=== PATIENT | female | born 1945 | race Caucasian/White ===

== ENCOUNTER 2023-10-25 14:45 | Emergency (ER) | payer MEDICARE, SELFPAY ==
[2023-10-25 14:57] VITALS: BP 130/61
[2023-10-25 15:28] LABS: % Basophils 0.7 % (0-2); % Eosinophils 1.6 % (0-6); % Immature Granulocytes 0.3 % (0-0.5); % Lymphocytes 22.1 % (20.5-51.1); % Monocytes 7.4 % (1.7-9.3); % Neutrophils 67.9 % (42.2-75.2); Absolute Basophils 0.1 10^3/uL (0-0.2); Absolute Eosinophils 0.1 10^3/uL (0-0.7); Absolute Lymphocytes 1.5 10^3/uL (1.2-3.4); Absolute Monocytes 0.5 10^3/uL (0.1-0.6); Absolute Neutrophils 4.7 10^3/uL (1.4-6.5); Hemoglobin 12.4 g/dL (12.0-16.0); Mean Corp Hgb Conc. 33.5 g/dL (33.0-37.0); Mean Corpuscular Hgb 28.7 pg (27.0-31.0); Mean Corpuscular Volume 85.6 fL (81.0-99.0); Mean Platelet Volume 10.1 fL (7.4-10.4); Nucleated Red Blood Cells % 0 %; Platelet Count 211 10^3/uL (130-400); Red Blood Cell Count 4.32 10^6/uL (4.20-5.40); Red Cell Dist. Width 14.6 % (11.5-14.5); White Blood Cell Count 6.9 10^3/uL (4.8-10.8)
[2023-10-25 15:44] LABS: Urine Albumin Negative (Neg - Trace); Urine Bilirubin Negative (Negative); Urine Character Clear (Clear); Urine Color Yellow; Urine Glucose Negative (Negative); Urine Ketone Negative (Negative); Urine Leukocyte 1+ (Negative); Urine Nitrite Negative (Negative); Urine Occult Blood Negative (Negative); Urine Specific Gravity 1.025 (<1.030); Urine Urobilinogen Negative (Neg - 1+)
[2023-10-25 15:48] LABS: ALT (SGPT) 16 U/L (0-35); AST (SGOT) 28 U/L (14-36); Albumin 4.5 g/dl (3.5-5.0); Alkaline Phosphatase 87 U/L (38-126); Blood Urea Nitrogen 27 mg/dl (7-17); Calcium 10.1 mg/dl (8.4-10.2); Carbon Dioxide 22 mmol/L (22-30); Chloride 108 mmol/L (98-107); Glucose 70 mg/dl (70-99); Potassium 4.5 mmol/L (3.5-5.1); Sodium 140 mmol/L (135-145); Total Bilirubin 0.6 mg/dl (0.2-1.3); Total Protein 7.3 g/dl (6.3-8.2); eGFR 51.43
[2023-10-25 15:59] LABS: Urine Red Blood Cell 0-2 /HPF (0-2)
[2023-10-25 16:00] VITALS: BP 152/76
[2023-10-25 16:00] LABS: Urine Squamous Cell 0-2 /LPF (Few)
[2023-10-25 16:07] LABS: Lipase 108 U/L (23-300)
[2023-10-25 17:02] VITALS: BP 152/76
[2023-10-25 17:07] VITALS: BMI 22.6
--- NOTE | 2023-10-25 17:12 | ED.GENMED ---
History of Present Illness
General
Chief Complaint: Abdominal Pain
Source: patient
Exam Limitations: none
Time Seen by Provider: 10/25/23 17:02
Nursing documentation reviewed up to this point in time: agreed with
History of Present Illness
History of Present Illness:
78-year-old female with history of HTN, HLD presents stating she has had intermittent sharp right lower quadrant pains for the past 4 days. She states when the pain comes she also has pain in the mid to right lower back area. She has had 'a
little' nausea but no vomiting. She denies diarrhea or constipation. Her appetite has been good. She denies fever or chills.
Past History
Past History
ED Past Medical History: HTN
ED Past Surgical History: None
Social History
Tobacco: Non-smoker
Alcohol: Occasional
Personal:
Living: with family
Review of Systems
Review of Systems
Allergies reviewed?: Yes
All Other Systems: ROS reviewed and negative except as documented in HPI and ROS
Constitutional: Denies fever or chills
Respiratory: Denies trouble breathing
Cardiac: Denies chest pain
ABD/GI: Reports abdominal pain and nausea; Denies vomiting, diarrhea, constipated or anorexia
: Denies dysuria, frequency or difficulty voiding
Musculoskeletal: Reports no symptoms
Skin: Reports no symptoms
Neurological: Reports no symptoms
Phy Exam
Physical Exam
Physical Exam:
GENERAL: No acute distress. A&Ox3.
CONSTITUTIONAL: Afebrile.
EYES: Clear, conjunctivae normal
ENMT: moist mucus membranes, Pharynx nl
RESPIRATORY: Regular respirations, nonlabored, lungs clear.
CARDIOVASCULAR: Regular rate and rhythm, no murmurs, no rubs.
GI: Soft, tender right lower quadrant, hyperactive BS
MUSCULOSKELETAL: Moves with ease. Well perfused.
SKIN: Warm, dry, pink
PSYCH: Normal mood and affect. Well kept, interactive and appropriate
NEUROLOGIC: Awake, alert and oriented. No focal neurological deficits
Course
Orders/Labs/Results
Orders:
Orders
10/25/23 15:16
Complete Blood Count/With Diff Urgent
Comprehensive Metabolic Panel Urgent
Lipase Urgent
Urinalysis Reflex To Culture Urgent
Date Specimen was Collected: 10/25/23
Time Specimen was Collected: 14:59
Urine Microscopic Reflex Cult Urgent
Urine Culture Urgent
ANGELICA Source: U
Specimen Description:
Date Specimen was Collected: 10/25/23
Time Specimen was Collected: 14:59
10/25/23 17:11
CT Abd/pel W Iv And Oral Contr Urgent
Comment:
Reason For Exam: RLQ pain
0.9% Sodium Chloride 1000 ml [Nss] 1,000 ml IV BOLUS
Iohexol [Omnipaque] See Protocol PO NOW STA
Ketorolac [Toradol] 15 mg IV NOW STA
Abnormal Lab Results
10/25/23
15:16
RDW 14.6 H %
(11.5-14.5)
Chloride 108 H mmol/L
(98-107)
BUN 27 H mg/dl
(7-17)
Creatinine 1.1 H mg/dL
(0.6-1.0)
Leukocyte Esterase Rfl 1+ A
(Negative)
10/25/23 15:16
10/25/23 15:16
Vital Signs
Initial and Last Documented VS:
Initial Vital Signs
Temp Pulse Resp BP Pulse Ox
98.2 F 79 16 130/61 98
10/25/23 14:57 10/25/23 14:57 10/25/23 14:57 10/25/23 14:57 10/25/23 14:57
Last Documented Vital Signs
Temp Pulse Resp BP Pulse Ox
98.4 F 72 18 142/65 96
10/25/23 20:19 10/25/23 20:19 10/25/23 20:19 10/25/23 20:18 10/25/23 20:19
MDM/Problems Addressed
Differential Diagnosis Includes:
Appendicitis, UTI
MDM/Problems Addressed:
78-year-old female with history of HTN, HLD presents stating she has had intermittent sharp right lower quadrant pains for the past 4 days. She states when the pain comes she also has pain in the mid to right lower back area. She has had 'a
little' nausea but no vomiting. She denies diarrhea or constipation. Her appetite has been good. She denies fever or chills.
8:00 PM:
CBC normal
CMP with mild elevation of BUN and creatinine, most likely prerenal, IV fluids ordered
UA negative
CT abdomen pelvis radiology report reviewed: IMPRESSION: No acute pathology of the abdomen and pelvis identified.
Simple left renal cyst.
Moderate diverticulosis. No evidence of acute diverticulitis.
Small hiatal hernia
Grade 2 anterolisthesis of L5 on S1.
Pt informed of neg workup. She states she has had similar abdominal pains in the past when she is stressed and has been stressed since May with her dog ('who means so much to me') being sick and still going through testing, etc.
Pt ambulated out with normal gait at discharge.
*Critical Care Note
Total Time (30-74mins, 75-104mins- exclusive of procedures): Not Applicable
ED Attending Note
-
Portions of this chart may have been created with voice recognition software.� Occasional wrong word or��sound alike� substitutions may have occurred due to the inherent limitations of voice recognition software.
Discharge Plan
Departure
Patient Disposition: Home (Routine Discharge)
Date of Disposition: 10/25/23
Time of Disposition: 20:17
Patient with high blood pressure during this ER visit?: No
Condition: Good
Discharge Problem:
Abdominal pain
Instructions: Stress, Abdominal Pain
Referrals:
Wil Fuller CRNP [Family Provider] - As needed
Activity Restrictions/Additional Instructions:
As we discussed, there is nothing worrisome in your workup here today.
Try Ibuprofen (Advil) 400 mg (with food) three times a day for next 2 days only and see if it helps.
See your doctor in 7-10 days if pain persists
Interventions
Interventions:
*Risk Screen - Suicide Last Done: 10/25/23 19:01
*General Assessment Last Done: 10/25/23 19:01
*Neglect/Abuse Screening Last Done: 10/25/23 19:01
ED- Fall Risk Assessment Last Done: 10/25/23 20:06
*ED COVID-19 Vaccine History Last Done: 10/25/23 19:01
*Nursing Disposition Last Done: 10/25/23 20:34
GX-Ntgmeu-Nrqfzrhxph Assessment Last Done: 10/25/23 17:05
Discharge Date and Time
Discharge Date/Time: 10/25/23 20:35
Print Language: MALDIVIAN
[2023-10-25] MEDS: TORADOL 15 MG IV (17:25)
[2023-10-25] MEDS: NSS 1000 IV (17:25)
[2023-10-25] MEDS: OMNIPAQUE 50 ML PO (17:30)
[2023-10-25 18:00] VITALS: BP 154/75
[2023-10-25 20:18] VITALS: BP 142/65
== END 2023-10-25 20:35 | disposition home or self-care (01) ==
LOC: EMR 14:45
PROVIDERS: Emergency Medicine; EMERGENCY PHYSICIAN Student in an Organized Health Care Education/Training Program; FAMILY PHYSICIAN Nurse Practitioner Family
DX: R10.31 Right lower quadrant pain (principal); I10 Essential (primary) hypertension; E78.5 Hyperlipidemia, unspecified
CPT/HCPCS: 99285; 96374; 96361; 74177; 80053; 81003; 81015; 83690; 85025; 87086; Q9967